=== PATIENT | male | born 1985 ===

== ENCOUNTER → 2023-10-28 10:14 | Outpatient (BNVA) | payer MEDICAID, SELFPAY | PROVIDERS: Referring Provider Family Medicine; Visit Provider Internal Medicine | DX: E11.9 Type 2 diabetes mellitus without complications (principal); E78.2 Mixed hyperlipidemia; F84.0 Autistic disorder; Z79.4 Long term (current) use of insulin; Z87.19 Personal history of other diseases of the digestive system | CPT/HCPCS: 99204 ==